=== PATIENT | female | born 1980 | race Caucasian/White ===

== ENCOUNTER 2019-04-13 10:43 | Inpatient (IN) ==
[2019-04-13 12:16] LABS: BASO# 0.03 X1000 (0.0-0.2); BASO% 0.3 % (0.0-0.8); EOS% 1.1 % (0.0-10.0); HEMATOCRIT 32.4 % (37.0-47.0); HEMOGLOBIN 10.2 g/dL (12.0-16.0); IMM GRAN# 0.05 X1000 (0.0-0.04); IMM GRAN% 0.6 % (0.0-0.5); LYMPH# 1.45 X1000 (1.2-3.4); MCH 27.3 PG (27-31); MCHC 31.5 g/dL (33-37); MCV 86.9 FL (81-99); MONO# 0.85 X1000 (0.11-0.59); MONO% 9.4 % (1.7-9.3); NEUT# 6.56 X1000 (1.4-6.5); NEUT% 72.6 % (42.2-75.2); PLT 278 X1000 (130-400); RBC 3.73 XMIL (4.2-5.4); RDW 13.5 % (11.5-14.5); WBC 9.04 X1000 (4.8-10.8)
[2019-04-13 12:32] LABS: AGAP 11; ALB/GLOB RATIO 0.8; ALBUMIN 2.7 g/dL (3.5-5.0); ALKALINE PHOSPHATASE 158 U/L (32-104); BUN 10 mg/dL (8-22); CALCIUM 8.5 mg/dL (8.8-10.2); CHLORIDE 106 mmol/L (98-107); COSMO 268; CREATININE 0.7 mg/dL (0.5-0.9); ESTIMATED GFR > 60; GLUCOSE 76 mg/dL (70-104); GOT 11 U/L (10-30); GPT 7 U/L (10-36); POTASSIUM 4.1 mmol/L (3.5-5.1); SODIUM 135 mmol/L (136-145); TCO2 18 mmol/L (25-35); TOTAL BILIRUBIN < 0.15 mg/dL (0.20-1.00); TOTAL PROTEIN 6.1 g/dL (6.3-8.3)
[2019-04-13] MEDS ORDERED: REGLAN PO ONE (13:30)
[2019-04-13] MEDS ORDERED: LR 500 ML IV ONE (13:30)
[2019-04-13] MEDS ORDERED: BICITRA PO ONE (13:30)
[2019-04-13] MEDS ORDERED: KEFZOL 2 GM/D5W 2 GM/50 ML IVPB IV ONE (13:30)
[2019-04-13] MEDS ORDERED: PEPCID PO ONE (13:30)
[2019-04-13] MEDS: LR 1,000 ML IV SCH ×2 (14:48→23:12)
[2019-04-13] MEDS ORDERED: ZOFRAN ONE (15:01)
[2019-04-13] MEDS ORDERED: PITOCIN ONE (15:01)
[2019-04-13] MEDS ORDERED: ROBINUL ONE (15:01)
[2019-04-13] MEDS ORDERED: DURAMORPH ONE (15:02)
[2019-04-13] MEDS ORDERED: NEO-SYNEPHRINE ONE (15:24)
[2019-04-13] MEDS ORDERED: BREVIBLOC ONE (15:24)
--- NOTE | 2019-04-13 15:28 | HISTORY AND PHYSICAL ---
HISTORY OF PRESENT ILLNESS: The patient is a 38-year-old white female, G5, P2, A2 who has a history of C section x2. She was seen in the office today and noted to have elevated blood pressure. This is not the first time this has been seen. She also has complaints of a headache today. care has been unremarkable. She has also expressed a desire for a bilateral tubal ligation. Her dating was by late ultrasound. PAST MEDICAL HISTORY: Unremarkable. PAST SURGICAL HISTORY: C section x2. D and C x2. Tonsillectomy. Dental surgery. PAST OB HISTORY: G5, P2, A2. C section x2. One loss at 20 weeks and then also an elective A. [employer] HISTORY: Menarche at age 13. REVIEW OF SYSTEMS: All systems reviewed and noncontributory. FAMILY HISTORY: Significant for diabetes mellitus and high blood pressure. SOCIAL HISTORY: Tobacco use none. Alcohol use none. MEDICATIONS: vitamins and iron. ALLERGIES: No known drug allergies. PHYSICAL EXAMINATION: VITAL SIGNS: Height 5 feet 2 inches, weight 178 pounds, temperature 98.6 degrees, blood pressure 165/950, pulse of 86, respirations 18, heart rate in the 130s with positive [id number] variability. HEENT: Pupils equal, round, reactive to light accommodation. Extraocular movements intact. Oropharynx clear. NECK: Supple, no thyromegaly. LUNGS: Clear to auscultation. HEART: Regular rate and rhythm. ABDOMEN: Gravid, nontender. EXTREMITIES: Mild lower extremity edema with 2+ DTRs bilaterally. ASSESSMENT/PLAN: A 38-year-old white female G5, P2, A 2 at 38 and 5/7 weeks with increasing blood pressure values noted as well as other symptoms such as headaches now presenting. Due to this, we will proceed with operative delivery due to gestational hypertension. The patient was counseled about the risks of surgery including bleeding, infection, and bowel or bladder injury. The patient also desires permanent sterilization. She was counseled about the permanency of tubal ligation, failure rate of 2 to 4 per 1000, as well as the availability of reversible alternatives such as IUD, control pills, patches, etc. cc: Pj Barillas III, MD
[2019-04-13] MEDS ORDERED: TORADOL ONE (15:45)
[2019-04-13 15:50] LABS: UR AMPHETAMINES QUAL NONE DETECTED (NONE DETECT); UR BARBITUATES QUAL NONE DETECTED (NONE DETECT); UR BENZODIAZEPIN QUAL NONE DETECTED (NONE DETECT); UR CANNABINOIDS QUAL NONE DETECTED (NONE DETECT); UR COCAINE QUAL NONE DETECTED (NONE DETECT); UR METHADONE QUAL NONE DETECTED (NONE DETECT); UR OPIATES QUAL NONE DETECTED (NONE DETECT); UR OXYCODONE QUAL NONE DETECTED (NONE DETECT); UR PCP QUAL NONE DETECTED (NONE DETECT)
[2019-04-13 15:53] LABS: URINE SOURCE VOIDED
[2019-04-13 15:55] LABS: BILIRUBIN URINE NEGATIVE (NEGATIVE); BLOOD URINE NEGATIVE (NEGATIVE); COLOR YELLOW; GLUCOSE URINE NEGATIVE (NEGATIVE); KETONE URINE NEGATIVE (NEGATIVE); LEUKOCYTES URINE SMALL (NEGATIVE); NITRITE URINE NEGATIVE (NEGATIVE); PH URINE 6.5; PROTEIN URINE TRACE mg/dL (NEGATIVE); TURBIDITY URINE CLEAR (CLEAR); UROBILINOGEN URINE NORMAL (NORMAL)
[2019-04-13 16:11] LABS: PROTEIN CREAT RATIO 0.2; UR PROT RANDOM 21.1 mg/dL
[2019-04-13] MEDS ORDERED: BENADRYL IV PRN (17:15)
[2019-04-13] MEDS ORDERED: ZOFRAN IV PRN ×2 (17:15)
[2019-04-13] MEDS ORDERED: ZOFRAN ODT PO PRN (17:15)
[2019-04-13] MEDS ORDERED: NARCAN INJ PRN (17:15)
[2019-04-13] MEDS ORDERED: PITOCIN 20 UNITS/NS 20 UNITS/1,000 ML IV.SOLN IV ONE (17:25)
[2019-04-13] MEDS ORDERED: DEMEROL PO PRN ×2 (17:25)
[2019-04-13] MEDS ORDERED: PHENERGAN IM PRN (17:25)
[2019-04-13] MEDS ORDERED: PITOCIN IM PRN (17:25)
[2019-04-13] MEDS ORDERED: ATARAX PO PRN (17:25)
[2019-04-13] MEDS ORDERED: M-M-R II VACCINE SUBQ ONE (17:25)
[2019-04-13] MEDS ORDERED: BOOSTRIX VACCINE IM ONE (17:25)
[2019-04-13] MEDS ORDERED: HYDROXYZINE IM PRN (17:25)
[2019-04-13] MEDS ORDERED: MYLICON PO PRN (17:25)
[2019-04-13] MEDS ORDERED: DULCOLAX PR PRN (17:25)
[2019-04-13] MEDS ORDERED: AMBIEN PO PRN (17:25)
[2019-04-13] MEDS ORDERED: DEMEROL IM PRN (17:25)
[2019-04-13] MEDS ORDERED: PITOCIN 10 UNITS/NS 1,000 ML IV SCH (17:30)
[2019-04-13] MEDS: MYLICON PO SCH ×2 (20:01→20:24)
[2019-04-13] MEDS ORDERED: PROCARDIA PO ONE (20:04)
[2019-04-13] MEDS: PERICOLACE PO SCH (20:24)
[2019-04-13] MEDS: TORADOL IV SCH (21:50)
[2019-04-13] MEDS: ADALAT CC PO SCH (21:50)
--- NOTE | 2019-04-13 22:10 | OPERATIVE NOTE ---
PROCEDURE DATE: 04/13/2019 PREOPERATIVE DIAGNOSIS: Intrauterine at 38 and 4/7 weeks with history of section x2 and increasing blood pressure. The patient also desires permanent sterilization. POSTOPERATIVE DIAGNOSIS: Intrauterine at 38 and 4/7 weeks with history of section x2 and increasing blood pressure. The patient also desires permanent sterilization with operative delivery of a male infant, 8 pounds 3 ounces with Apgars of 9 and 10 at 1545 on 04/13/2019. PROCEDURE: Repeat low-transverse section and bilateral tubal ligation. SURGEON: Pj Barillas III, MD [employer] ATTENDANT: ORT. ANESTHESIA: Spinal by Dr. Lamas. FINDINGS: Normal-appearing uterus, tubes, and ovaries. COMPLICATIONS: None. ESTIMATED BLOOD LOSS: 700 mL. SPECIMENS: Right and left fallopian tube segments to pathology. DRAINS: Rodríguez to straight drain. COUNTS: All counts were correct x3. INDICATIONS: This patient is a 38-year-old white female G5, P2, A2 at 38 and 4/7 weeks who has been followed closely for elevated blood pressure, presently not on any medication, but recently complained of headache. With the diagnosis of gestational hypertension, we will proceed with operative delivery. Patient was counseled about the risks of surgery including bleeding, infection, bowel or bladder injury. Patient was also counseled about the permanency of tubal ligation, failure rate of 2 to 06/999, as well as availability of reversible alternatives such as IUD, control pills, patches, etc. PROCEDURE IN DETAIL: Patient was taken to labor and delivery OR. Spinal anesthesia was placed and then the patient was placed in supine position with a roll under right hip. She was then prepped and draped in a sterile fashion with placement of Rodríguez catheter. Adequate anesthesia was noted by using Allis clamps on skin, and then a Pfannenstiel skin incision was made on lower abdomen using a scalpel. This was taken down sharply to the fascial layer. A small heidi was made in the rectus fascia. Fascial incision was extended bilaterally by curved Britt scissors, and then blunt and sharp dissection of the rectus fascia was performed. The rectus muscle was divided bluntly, and the peritoneal layer was also entered bluntly. The peritoneal incision was extended superiorly and inferiorly with care taken to avoid the bladder. At this point in time, bladder blade was placed into the abdominal cavity after a bladder reflection was created by Metzenbaum scissors. A transverse incision was made in the lower uterine segment using a scalpel, and then entry into the amniotic cavity was performed with clear fluid noted upon entry. The head was then elevated toward the hysterotomy site, and with gentle fundal pressure, the head was delivered atraumatically. The was bulb suctioned of the nose and mouth, and then the umbilical cord was clamped twice and cut. handed to nursery nurse in attendance for delivery. Cord blood sample was obtained at this time. The placenta was then manually extracted. Uterus was exteriorized. Wet lap was placed around the uterus. Dry lap was then used to curette the uterine cavity of clots and debris. Uterine incision was then closed using 0 chromic in a running locking fashion. A small area of oozing was noted in the midline portion of the incision, and this was made hemostatic with [id number] stitches. The posterior cul-de-sac was then irrigated copiously. Attention was then turned to the right fallopian tube, which was grasped near the isthmus. A small hole was made in the mesosalpinx with electrocautery, and a 0 plain suture was then used to ligate a portion of the right fallopian tube near the isthmus. This segment was then excised using Metzenbaum scissors, and this was then removed and placed into a specimen container. The edges of the fallopian tube were then touched with electrocautery. Good hemostasis was noted. At this point in time, attention was turned to the left fallopian tube, which was grasped near the isthmus. A hole was made in the mesosalpinx using electrocautery, and 0 plain suture was then used to ligate a portion of the fallopian tube. This ligated portion was then excised using Metzenbaum scissors and placed in a specimen container. Electrocautery was once again used to obtain hemostasis. The uterus was then replaced back into the abdominal cavity. The pericolic gutters were cleansed using moist lap sponges. Uterine incision and bladder reflection were inspected, and good hemostasis was noted. The peritoneal incision was then closed using 2-0 chromic in a running fashion x1. The fascia layer was then closed using 0 PDS in a running fashion x1. The subcutaneous layer was then irrigated copiously and electrocautery was used to obtain hemostasis. The skin was then reapproximated using chacorta. Patient tolerated the procedure well and was taken to recovery room in stable condition. All counts were correct x3. cc: Pj Barillas III, MD
[2019-04-13] MEDS: PERCOCET-5 PO PRN (23:09)
[2019-04-14] MEDS: TORADOL IV SCH ×3 (04:43→16:48)
[2019-04-14 05:30] LABS: BASO# 0.03 X1000 (0.0-0.2); BASO% 0.2 % (0.0-0.8); EOS# 0.16 X1000 (0.0-0.7); EOS% 1.3 % (0.0-10.0); HEMATOCRIT 27.6 % (37.0-47.0); HEMOGLOBIN 8.6 g/dL (12.0-16.0); IMM GRAN# 0.04 X1000 (0.0-0.04); IMM GRAN% 0.3 % (0.0-0.5); LYMPH# 1.43 X1000 (1.2-3.4); LYMPH% 11.5 % (20.5-51.1); MCH 27.1 PG (27-31); MCHC 31.2 g/dL (33-37); MCV 87.1 FL (81-99); MONO# 1.29 X1000 (0.11-0.59); MONO% 10.4 % (1.7-9.3); MPV 11.5 FL (7.4-10.4); NEUT# 9.51 X1000 (1.4-6.5); NEUT% 76.3 % (42.2-75.2); PLT 216 X1000 (130-400); RBC 3.17 XMIL (4.2-5.4); RDW 13.3 % (11.5-14.5); WBC 12.46 X1000 (4.8-10.8)
[2019-04-14 05:52] LABS: AGAP 9; ALB/GLOB RATIO 0.9; ALBUMIN 2.4 g/dL (3.5-5.0); ALKALINE PHOSPHATASE 128 U/L (32-104); BUN 11 mg/dL (8-22); CALCIUM 7.7 mg/dL (8.8-10.2); CHLORIDE 106 mmol/L (98-107); COSMO 270; CREATININE 0.7 mg/dL (0.5-0.9); ESTIMATED GFR > 60; GLUCOSE 82 mg/dL (70-104); GOT 18 U/L (10-30); GPT 6 U/L (10-36); SODIUM 136 mmol/L (136-145); TCO2 21 mmol/L (25-35); TOTAL BILIRUBIN < 0.15 mg/dL (0.20-1.00); TOTAL PROTEIN 5.2 g/dL (6.3-8.3); URIC ACID 5.7 mg/dL (2.4-5.7)
--- NOTE | 2019-04-14 07:01 | OB/GYN PROGRESS NOTE ---
- Subjective no complaints, doing well OB Physical Exam Vital Signs - 8 hr 04/13/19 23:12 04/14/19 00:46 04/14/19 04:00 Temperature 98.5 F Pulse Rate 97 H 88 84 Respiratory Rate 16 16 16 Blood Pressure 137/68 148/87 133/78 O2 Sat by Pulse Oximetry 95 95 93 L - CONSTITUTIONAL General Appearance: appears well, alert, no apparent distress - EYES Eyes: PERRL/EOMI - HEAD, EARS, NOSE, MOUTH & THROAT HENMT: normocephalic/atraumatic - RESPIRATORY Respiratory: no respiratory distress - CARDIOVASCULAR Cardiovascular: regular rate, rhythm - CHEST (BREASTS) Chest/Breast: deferred - GASTROINTESTINAL (ABDOMEN) Abdominal Exam: non tender, other (binder on, incision intact/dry) - GENITOURINARY Female Genitalia/Pelvic Exam: deferred - SKIN Integumentary: normal color - NEUROLOGIC Neurologic: grossly normal - PSYCHIATRIC Psych/Mental Status: normal mood/affect, oriented x 3 Active Medications Generic Name Dose Route Start Last Admin Trade Name Freq PRN Reason Stop Dose Admin Bisacodyl 10 mg 04/13/19 17:25 Dulcolax MD PRN PRN gas unrelieved by Mylicon Diphenhydramine HCl 12.5 mg 04/13/19 17:15 Benadryl IV 04/14/19 17:14 Q6H PRN PRN ITCHING IF ZOFRAN INEFFECTIVE Hydroxyzine HCl 50 mg 04/13/19 17:25 Atarax PO Q3-4H PRN PRN Nausea Hydroxyzine HCl 50 mg 04/13/19 17:25 Hydroxyzine IM Q3-4H PRN PRN Nausea Lactated Ringer's 1,000 mls @ 125 mls/hr 04/13/19 13:30 04/13/19 23:12 Lr IV Not Given .Q8H MELODY Lactated Ringer's 1,000 mls @ 125 mls/hr 04/14/19 17:25 Lr IV .Q8H MELODY Oxytocin/Sodium Chloride 1,000 mls @ 125 mls/hr 04/13/19 17:30 04/14/19 01:23 Pitocin 10 Units/Ns IV 04/14/19 09:29 125 mls/hr .Q8H MELODY Administration Ibuprofen 800 mg 04/13/19 17:25 Motrin PO Q8H PRN PRN Pain Ketorolac Tromethamine 30 mg 04/13/19 22:00 04/14/19 04:43 Toradol IV 04/14/19 16:01 30 mg Q6H MELODY Administration Meperidine HCl 50 mg 04/13/19 17:25 Demerol PO Q4H PRN PRN Pain (1-6 on Pain Scale) Meperidine HCl 50 mg 04/13/19 17:25 Demerol IM Q3H PRN PRN Pain Meperidine HCl 100 mg 04/13/19 17:25 Demerol PO Q4H PRN PRN Pain (7-10 on Pain Scale) Naloxone HCl 0.4 mg 04/13/19 17:15 Narcan INJ 04/14/19 17:14 DIRECTED PRN PRN Nifedipine 30 mg 04/13/19 20:15 04/13/19 21:50 Adalat Cc PO 30 mg DAILY MELODY Administration Ondansetron HCl 4 mg 04/13/19 17:15 Zofran Odt PO 04/14/19 17:14 DIRECTED PRN PRN Ondansetron HCl 4 mg 04/13/19 17:15 Zofran IV 04/14/19 17:14 DIRECTED PRN PRN Ondansetron HCl 4 mg 04/13/19 17:15 Zofran IV 04/14/19 17:14 Q4-6H PRN PRN Itching Oxycodone/Acetaminophen 1 each 04/13/19 17:25 Percocet-10 PO Q3-4H PRN PRN Pain (7-10 on Pain Scale) Oxycodone/Acetaminophen 1 each 04/13/19 17:25 04/13/19 23:09 Percocet-5 PO 1 each Q3-4H PRN PRN Administration Pain (1-6 on Pain Scale) Oxytocin 20 unit 04/13/19 17:25 Pitocin IM PRN PRN Severe bleeding Promethazine HCl 25 mg 04/13/19 17:25 Phenergan IM Q3H PRN PRN Pain Senna/Docusate Sodium 1 each 04/13/19 21:00 04/13/19 20:24 Pericolace PO 1 each QHS MELODY Administration Simethicone 80 mg 04/13/19 18:00 04/13/19 20:24 Mylicon PO 80 mg PC + HS MELODY Administration Simethicone 80 mg 04/13/19 17:25 Mylicon PO PRN PRN GAS Zolpidem Tartrate 10 mg 04/13/19 17:25 Ambien PO HS PRN PRN Sleep Laboratory Results - last 24 hr 04/13/19 04/13/19 04/13/19 12:03 12:03 12:03 WBC 9.04 RBC 3.73 L Hgb 10.2 L Hct 32.4 L MCV 86.9 MCH 27.3 MCHC 31.5 L RDW Std Deviation 13.5 Plt Count 278 MPV 12.0 H Immature Gran % (Auto) 0.6 H Neut % (Auto) 72.6 Lymph % (Auto) 16.0 L [place] % (Auto) 9.4 H Eos % (Auto) 1.1 Baso % (Auto) 0.3 Immature Gran # (Auto) 0.05 H Neut # (Auto) 6.56 H Lymph # (Auto) 1.45 [place] # (Auto) 0.85 H Eos # (Auto) 0.10 Baso # (Auto) 0.03 Sodium 135 L Potassium 4.1 Chloride 106 Carbon Dioxide 18 L Anion Gap 11 BUN 10 Creatinine 0.7 Estimated GFR/1.73 m2 > 60 BUN/Creatinine Ratio 14 Glucose 76 Calculated Osmolality 268 Uric Acid Calcium 8.5 L Total Bilirubin < 0.15 L AST 11 ALT 7 L Alkaline Phosphatase 158 H Total Protein 6.1 L Albumin 2.7 L Globulin 3.4 Albumin/Globulin Ratio 0.8 Urine Source Urine Color Urine Turbidity Urine pH Ur Specific [place] Urine Protein Ur Glucose (Stick) Ur Ketones (Stick) Urine Blood Urine Nitrite Urine Bilirubin Urobilinogen Dipstick Urine Leukocytes Ur Random Creatinine U Random Total Protein Protein/Creatinin Ratio Urine Opiates Screen Ur Oxycodone Screen Ur Methadone, Qual Ur Barbiturates Screen Ur Phencyclidine Scrn Ur Amphetamines Screen U Benzodiazepines Scrn Urine Cocaine Screen U Cannabinoids Screen RPR NON-REACTIVE Blood Type Antibody Screen 04/13/19 04/13/19 04/13/19 12:03 14:45 14:45 WBC RBC Hgb Hct MCV MCH MCHC RDW Std Deviation Plt Count MPV Immature Gran % (Auto) Neut % (Auto) Lymph % (Auto) [place] % (Auto) Eos % (Auto) Baso % (Auto) Immature Gran # (Auto) Neut # (Auto) Lymph # (Auto) [place] # (Auto) Eos # (Auto) Baso # (Auto) Sodium Potassium Chloride Carbon Dioxide Anion Gap BUN Creatinine Estimated GFR/1.73 m2 BUN/Creatinine Ratio Glucose Calculated Osmolality Uric Acid Calcium Total Bilirubin AST ALT Alkaline Phosphatase Total Protein Albumin Globulin Albumin/Globulin Ratio Urine Source VOIDED Urine Color YELLOW Urine Turbidity CLEAR Urine pH 6.5 Ur Specific [place] 1.020 Urine Protein TRACE A Ur Glucose (Stick) NEGATIVE Ur Ketones (Stick) NEGATIVE Urine Blood NEGATIVE Urine Nitrite NEGATIVE Urine Bilirubin NEGATIVE Urobilinogen Dipstick NORMAL Urine Leukocytes SMALL A Ur Random Creatinine U Random Total Protein Protein/Creatinin Ratio Urine Opiates Screen NONE DETECTED Ur Oxycodone Screen NONE DETECTED Ur Methadone, Qual NONE DETECTED Ur Barbiturates Screen NONE DETECTED Ur Phencyclidine Scrn NONE DETECTED Ur Amphetamines Screen NONE DETECTED U Benzodiazepines Scrn NONE DETECTED Urine Cocaine Screen NONE DETECTED U Cannabinoids Screen NONE DETECTED RPR Blood Type A POSITIVE Antibody Screen NEGATIVE 04/13/19 04/14/19 04/14/19 14:45 05:16 05:16 WBC 12.46 H RBC 3.17 L Hgb 8.6 L D Hct 27.6 L MCV 87.1 MCH 27.1 MCHC 31.2 L RDW Std Deviation 13.3 Plt Count 216 MPV 11.5 H Immature Gran % (Auto) 0.3 Neut % (Auto) 76.3 H Lymph % (Auto) 11.5 L [place] % (Auto) 10.4 H Eos % (Auto) 1.3 Baso % (Auto) 0.2 Immature Gran # (Auto) 0.04 Neut # (Auto) 9.51 H Lymph # (Auto) 1.43 [place] # (Auto) 1.29 H Eos # (Auto) 0.16 Baso # (Auto) 0.03 Sodium 136 Potassium 4.0 Chloride 106 Carbon Dioxide 21 L Anion Gap 9 BUN 11 Creatinine 0.7 Estimated GFR/1.73 m2 > 60 BUN/Creatinine Ratio 16 Glucose 82 Calculated Osmolality 270 Uric Acid 5.7 Calcium 7.7 L Total Bilirubin < 0.15 L AST 18 ALT 6 L Alkaline Phosphatase 128 H Total Protein 5.2 L Albumin 2.4 L Globulin 2.8 Albumin/Globulin Ratio 0.9 Urine Source Urine Color Urine Turbidity Urine pH Ur Specific [place] Urine Protein Ur Glucose (Stick) Ur Ketones (Stick) Urine Blood Urine Nitrite Urine Bilirubin Urobilinogen Dipstick Urine Leukocytes Ur Random Creatinine 114.0 H U Random Total Protein 21.1 Protein/Creatinin Ratio 0.2 Urine Opiates Screen Ur Oxycodone Screen Ur Methadone, Qual Ur Barbiturates Screen Ur Phencyclidine Scrn Ur Amphetamines Screen U Benzodiazepines Scrn Urine Cocaine Screen U Cannabinoids Screen RPR Blood Type Antibody Screen OB Assessment & Plan (1) Status post section routine follow-up Status: Acute Plan: continue to follow, circumcision discussed and all questions answered, patient wishes to proceed
[2019-04-14] MEDS: ADALAT CC PO SCH (08:07)
[2019-04-14] MEDS: PERCOCET-10 PO PRN ×3 (08:07→18:23)
[2019-04-14] MEDS: MYLICON PO SCH ×4 (08:08→18:23)
[2019-04-14] MEDS: LR 1,000 ML IV SCH (16:48)
[2019-04-15] MEDS: MOTRIN PO PRN ×3 (00:06→19:17)
[2019-04-15] MEDS: PERCOCET-10 PO PRN ×4 (00:06→19:17)
[2019-04-15] MEDS: PERICOLACE PO SCH (00:06)
[2019-04-15] MEDS: MYLICON PO SCH ×4 (00:06→17:15)
[2019-04-15] MEDS: LR 1,000 ML IV SCH ×2 (05:56)
--- NOTE | 2019-04-15 07:26 | OB/GYN PROGRESS NOTE ---
- Subjective PO2 no cx s/nt cdi hgb 8.4 dn fm 10.4 A POD2 ambulating naomie reg home in am OB Physical Exam Vital Signs - 8 hr 04/15/19 00:10 04/15/19 05:25 Temperature 97.6 F 97.4 F L Pulse Rate 86 86 Respiratory Rate 16 16 Blood Pressure 140/85 136/75 O2 Sat by Pulse Oximetry 100 95 - CONSTITUTIONAL General Appearance: appears well Active Medications Generic Name Dose Route Start Last Admin Trade Name Freq PRN Reason Stop Dose Admin Bisacodyl 10 mg 04/13/19 17:25 Dulcolax [place] PRN PRN gas unrelieved by Mylicon Hydroxyzine HCl 50 mg 04/13/19 17:25 Atarax PO Q3-4H PRN PRN Nausea Hydroxyzine HCl 50 mg 04/13/19 17:25 Hydroxyzine IM Q3-4H PRN PRN Nausea Ibuprofen 800 mg 04/13/19 17:25 04/15/19 00:06 Motrin PO 800 mg Q8H PRN PRN Administration Pain Meperidine HCl 50 mg 04/13/19 17:25 Demerol PO Q4H PRN PRN Pain (1-6 on Pain Scale) Meperidine HCl 50 mg 04/13/19 17:25 Demerol IM Q3H PRN PRN Pain Meperidine HCl 100 mg 04/13/19 17:25 Demerol PO Q4H PRN PRN Pain (7-10 on Pain Scale) Neomycin/Polymyxin/Bacitracin 1 each 04/15/19 06:00 Neosporin Ointment Packet TOP PRN PRN SKIN TEAR R/T C/S DRESSING Nifedipine 30 mg 04/13/19 20:15 04/14/19 08:07 Adalat Cc PO 30 mg DAILY MELODY Administration Oxycodone/Acetaminophen 1 each 04/13/19 17:25 04/15/19 05:27 Percocet-10 PO 1 each Q3-4H PRN PRN Administration Pain (7-10 on Pain Scale) Oxycodone/Acetaminophen 1 each 04/13/19 17:25 04/13/19 23:09 Percocet-5 PO 1 each Q3-4H PRN PRN Administration Pain (1-6 on Pain Scale) Oxytocin 20 unit 04/13/19 17:25 Pitocin IM PRN PRN Severe bleeding Promethazine HCl 25 mg 04/13/19 17:25 Phenergan IM Q3H PRN PRN Pain Senna/Docusate Sodium 1 each 04/13/19 21:00 04/15/19 00:06 Pericolace PO 1 each QHS MELODY Administration Simethicone 80 mg 04/13/19 18:00 04/15/19 00:06 Mylicon PO 80 mg PC + HS MELODY Administration Simethicone 80 mg 04/13/19 17:25 Mylicon PO PRN PRN GAS Zolpidem Tartrate 10 mg 04/13/19 17:25 Ambien PO HS PRN PRN Sleep
[2019-04-15] MEDS: ADALAT CC PO SCH (08:08)
[2019-04-15] MEDS: NEOSPORIN OINTMENT PACKET TOP PRN (09:00)
[2019-04-16] MEDS: MYLICON PO SCH ×5 (00:20→20:12)
[2019-04-16] MEDS: PERCOCET-10 PO PRN ×5 (00:20→15:33)
[2019-04-16] MEDS: PERICOLACE PO SCH ×2 (00:20→20:12)
[2019-04-16] MEDS: MOTRIN PO PRN ×3 (04:59→20:12)
[2019-04-16] MEDS: ADALAT CC PO SCH (08:32)
--- NOTE | 2019-04-16 10:04 | OB/GYN PROGRESS NOTE ---
- Subjective PO3 no cx baby in nursery-jaundice s/nt cdi -cce ambulating, voiding, naomie reg diet BP still elevated, increase nifedipone to 60 D/c tomorrow OB Physical Exam Vital Signs - 8 hr 04/16/19 05:01 04/16/19 08:06 Temperature 99.0 F 99.1 F Pulse Rate 102 H 89 Respiratory Rate 16 16 Blood Pressure 150/81 141/89 O2 Sat by Pulse Oximetry 96 98 - CONSTITUTIONAL General Appearance: appears well Active Medications Generic Name Dose Route Start Last Admin Trade Name Freq PRN Reason Stop Dose Admin Bisacodyl 10 mg 04/13/19 17:25 Dulcolax NM PRN PRN gas unrelieved by Mylicon Hydroxyzine HCl 50 mg 04/13/19 17:25 Atarax PO Q3-4H PRN PRN Nausea Hydroxyzine HCl 50 mg 04/13/19 17:25 Hydroxyzine IM Q3-4H PRN PRN Nausea Ibuprofen 800 mg 04/13/19 17:25 04/16/19 04:59 Motrin PO 800 mg Q8H PRN PRN Administration Pain Meperidine HCl 50 mg 04/13/19 17:25 Demerol PO Q4H PRN PRN Pain (1-6 on Pain Scale) Meperidine HCl 50 mg 04/13/19 17:25 Demerol IM Q3H PRN PRN Pain Meperidine HCl 100 mg 04/13/19 17:25 Demerol PO Q4H PRN PRN Pain (7-10 on Pain Scale) Neomycin/Polymyxin/Bacitracin 1 each 04/15/19 06:00 04/15/19 09:00 Neosporin Ointment Packet TOP 1 each PRN PRN Administration SKIN TEAR R/T C/S DRESSING Nifedipine 30 mg 04/13/19 20:15 04/16/19 08:32 Adalat Cc PO 30 mg DAILY MELODY Administration Oxycodone/Acetaminophen 1 each 04/13/19 17:25 04/16/19 08:32 Percocet-10 PO 1 each Q3-4H PRN PRN Administration Pain (7-10 on Pain Scale) Oxycodone/Acetaminophen 1 each 04/13/19 17:25 04/13/19 23:09 Percocet-5 PO 1 each Q3-4H PRN PRN Administration Pain (1-6 on Pain Scale) Oxytocin 20 unit 04/13/19 17:25 Pitocin IM PRN PRN Severe bleeding Promethazine HCl 25 mg 04/13/19 17:25 Phenergan IM Q3H PRN PRN Pain Senna/Docusate Sodium 1 each 04/13/19 21:00 04/16/19 00:20 Pericolace PO 1 each QHS MELODY Administration Simethicone 80 mg 04/13/19 18:00 04/16/19 08:31 Mylicon PO 80 mg PC + HS MELODY Administration Simethicone 80 mg 04/13/19 17:25 Mylicon PO PRN PRN GAS Zolpidem Tartrate 10 mg 04/13/19 17:25 Ambien PO HS PRN PRN Sleep
[2019-04-16] MEDS: PERCOCET-5 PO PRN (20:13)
[2019-04-16] MEDS: NEOSPORIN OINTMENT PACKET TOP PRN (20:13)
[2019-04-16] MEDS ORDERED: ADALAT CC PO ONE (21:11)
[2019-04-17] MEDS: PERCOCET-10 PO PRN ×3 (00:33→09:17)
[2019-04-17] MEDS: MOTRIN PO PRN ×2 (04:21→12:55)
[2019-04-17 07:13] VITALS: BP 126/83
[2019-04-17] MEDS ORDERED: PROCARDIA ER PO SCH (09:00)
[2019-04-17] MEDS ORDERED: FLU VACCINE IM ONE (09:15)
[2019-04-17] MEDS: MYLICON PO SCH ×2 (09:17→12:55)
[2019-04-17] MEDS: NEOSPORIN OINTMENT PACKET TOP PRN (09:17)
--- NOTE | 2019-04-17 13:01 | OB/GYN PROGRESS NOTE ---
- Subjective Pt is POD#4 s/p repeat CD with BTL. Reports pain well controlled. Ambulating and urinating w/o difficulty. Tolerating regular diet. denies CARL/scoto russell/epigastric pain/N/V. OB Physical Exam Vital Signs - 8 hr 04/17/19 05:05 04/17/19 07:13 Temperature 98.4 F 99.4 F Pulse Rate 86 90 Respiratory Rate 18 16 Blood Pressure 140/84 126/83 O2 Sat by Pulse Oximetry 95 96 - CONSTITUTIONAL General Appearance: appears well, alert, no apparent distress - RESPIRATORY Respiratory: lungs clear, normal breath sounds - CARDIOVASCULAR Cardiovascular: regular rate, rhythm - GASTROINTESTINAL (ABDOMEN) Abdominal Exam: non tender, soft (FF below umbilicus) - MUSCULOSKELETAL Extremity: non-tender DTR: bicep (R): 2+, bicep (L): 2+ - SKIN Integumentary: normal color, warm/dry (c/d/i) Active Medications Generic Name Dose Route Start Last Admin Trade Name Freq PRN Reason Stop Dose Admin Bisacodyl 10 mg 04/13/19 17:25 Dulcolax AR PRN PRN gas unrelieved by Mylicon Hydroxyzine HCl 50 mg 04/13/19 17:25 Atarax PO Q3-4H PRN PRN Nausea Hydroxyzine HCl 50 mg 04/13/19 17:25 Hydroxyzine IM Q3-4H PRN PRN Nausea Ibuprofen 800 mg 04/13/19 17:25 04/17/19 04:21 Motrin PO 800 mg Q8H PRN PRN Administration Pain Meperidine HCl 50 mg 04/13/19 17:25 Demerol PO Q4H PRN PRN Pain (1-6 on Pain Scale) Meperidine HCl 50 mg 04/13/19 17:25 Demerol IM Q3H PRN PRN Pain Meperidine HCl 100 mg 04/13/19 17:25 Demerol PO Q4H PRN PRN Pain (7-10 on Pain Scale) Neomycin/Polymyxin/Bacitracin 1 each 04/15/19 06:00 04/17/19 09:17 Neosporin Ointment Packet TOP 1 each PRN PRN Administration SKIN TEAR R/T C/S DRESSING Nifedipine 60 mg 04/17/19 09:00 Procardia Er PO DAILY MELODY Oxycodone/Acetaminophen 1 each 04/13/19 17:25 04/17/19 09:17 Percocet-10 PO 1 each Q3-4H PRN PRN Administration Pain (7-10 on Pain Scale) Oxycodone/Acetaminophen 1 each 04/13/19 17:25 04/16/19 20:13 Percocet-5 PO 1 each Q3-4H PRN PRN Administration Pain (1-6 on Pain Scale) Oxytocin 20 unit 04/13/19 17:25 Pitocin IM PRN PRN Severe bleeding Promethazine HCl 25 mg 04/13/19 17:25 Phenergan IM Q3H PRN PRN Pain Senna/Docusate Sodium 1 each 04/13/19 21:00 04/16/19 20:12 Pericolace PO 1 each QHS MELODY Administration Simethicone 80 mg 04/13/19 18:00 04/17/19 09:17 Mylicon PO 80 mg PC + HS MELODY Administration Simethicone 80 mg 04/13/19 17:25 04/17/19 00:32 Mylicon PO 80 mg PRN PRN Administration GAS Zolpidem Tartrate 10 mg 04/13/19 17:25 Ambien PO HS PRN PRN Sleep OB Assessment & Plan (1) Status post section routine follow-up Status: Acute Plan: 38yo POD#4 s/p repeat CD with BTL -routine PP care -reviewed si/sy of pre-eclmapsia -Con't procardia 60 daily for BP control -Advised on wound care -oob to ambulation -reg diet -plan for d/c home
== END 2019-04-17 15:30 | disposition home or self-care (01) | DRG 785 ==
LOC: OPLD 10:43 → LD 10:44
PROVIDERS: ADMIT Obstetrics & Gynecology; ATTEND Student in an Organized Health Care Education/Training Program